=== PATIENT | female | born 1965 | race African-American/Black ===

== ENCOUNTER 2016-04-12 15:26 | Emergency (ER) | payer OTHER ==
[2016-04-12 17:59] LABS: APPEARANCE CLEAR (CLEAR); BILIRUBIN NEGATIVE (NEGATIVE); COLOR YELLOW (YELLOW); GLUCOSE NEGATIVE (NEGATIVE); KETONE NEGATIVE (NEGATIVE); LEUKOCYTE ESTERASE NEGATIVE (NEGATIVE); NITRITE NEGATIVE (NEGATIVE); PROTEIN NEGATIVE (NEGATIVE); SPECIFIC GRAVITY 1.015 (1.005-1.020); UROBILINOGEN NORMAL (NORMAL)
== END 2016-04-12 19:46 | disposition home or self-care (01) ==
LOC: D.ER 15:26
PROVIDERS: Nurse Practitioner Family
DX: M25.50 Pain in unspecified joint (principal); J02.9 Acute pharyngitis, unspecified; N64.4 Mastodynia